=== PATIENT | female | born 1955 | race Caucasian/White ===

== ENCOUNTER → 2021-05-03 13:01 | Outpatient (CLI) | payer MEDICARE, SELFPAY ==
[2021-05-03 13:52] LABS: Add Manual Diff / Slide Review NO; Basophils Absolute Auto 100 /uL (0-100); Eosinophils Absolute Auto 100 /uL (0-450); Eosinophils Percent Auto 2.1 % (2-4); Hematocrit 36.3 % (36-46); Hemoglobin 12.4 g/dL (12.0-16.0); Lymphocytes Absolute Auto 2400 /uL (1100-4500); Lymphocytes Percent Auto 44.1 % (25-40); Mean Corpuscular HGB Conc 34.2 % (30-36); Mean Corpuscular Hemoglobin 33.7 PG (26-34); Mean Corpuscular Volume 98.5 fL (80-100); Monocytes Absolute Auto 400 /uL (0-900); Monocytes Percent Auto 6.6 % (3-14); Neutrophils Absolute Auto 2500 /uL (1500-7000); Neutrophils Percent Auto 46.2 % (50-75); Platelet Count 167 X10^3/uL (150-400); Red Blood Cell Count 3.69 X10^6/uL (4.0-5.2); Red Cell Distribution Width 12.9 % (11.6-14.8); White Blood Cell Count 5.5 X10^3/uL (4.5-11.0)
[2021-05-03 14:02] LABS: BUN Creatinine Ratio 13.9 (6-22); Blood Urea Nitrogen 15 mg/dL (7-17); Calcium 9.2 mg/dL (8.4-10.2); Carbon Dioxide 29 mmol/L (22-32); Chloride 104 mmol/L (98-107); Estimated Glomerular Filt Rate 50.6 mL/min (>60); Glucose 91 mg/dL (80-110); HEMOLYSIS < 15 (0-50); Potassium 4.1 mmol/L (3.4-5.1); Sodium 139 mmol/L (137-145)
[2021-05-03 14:10] LABS: Hemoglobin A1C% w Est Avg Glu 5.2 % (4.0-6.0)
== END ==
PROVIDERS: PCP Family Medicine; Referring Provider Orthopaedic Surgery; Visit Provider Orthopaedic Surgery
DX: Z01.818 Encounter for other preprocedural examination (principal); R73.9 Hyperglycemia, unspecified; Z01.812 Encounter for preprocedural laboratory examination
CPT/HCPCS: 36415; 80048; 83036; 85025; 93005

== ENCOUNTER → 2021-05-31 11:51 | Outpatient (CLI) | payer MEDICARE, SELFPAY ==
[2021-05-31 13:25] LABS: COVID19 -Nasal RAPID Negative (Negative)
== END ==
PROVIDERS: PCP Family Medicine; Visit Provider Nurse Practitioner Family
DX: Z20.822 Contact with and (suspected) exposure to COVID-19 (principal)
CPT/HCPCS: 87635; C9803

== ENCOUNTER 2021-06-02 06:23 | Day surgery (SDC) | payer MEDICARE, SELFPAY ==
[2021-05-22 08:20] VITALS: BMI 37.5
[2021-06-02] VITALS (17 sets, daily range): BP systolic 80–141; BP diastolic 43–79; PULSE 12–83; RESP 12–82; TEMP 36.1–36.7; O2SAT 91–97; BMI 34.9
--- NOTE | 2021-06-02 06:00 | DI.RAD.S_ITS ---
PROCEDURE: XR KNEE LT 1TO2V INDICATIONS: postop prosthesis placement TECHNIQUE: 2 view(s) of the knee acquired. COMPARISON: None. FINDINGS: Bones: Patient is status post knee joint arthroplasty. Hardware components are in expected positions. Visualized bony structures are intact. Soft tissues: Overlying postoperative changes are noted. IMPRESSION: Postoperative changes of left knee replacement without complication. Dictated by: Sam Montana M.D. on 06/02/2021 at 9:48 Approved by: Sam Montana M.D. on 06/02/2021 at 9:50
[2021-06-02] MEDS: LACTATED RINGERS 1,000 ML 42 ML IV (06:58)
[2021-06-02] MEDS: CELECOXIB 200 MG CAPSULE PO (07:03)
[2021-06-02] MEDS: PREGABALIN 75 MG CAPSULE PO (07:03)
[2021-06-02] MEDS: ACETAMINOPHEN 325 MG TABLET 975 MG PO (07:03)
--- NOTE | 2021-06-02 07:12 | PM.PREOP ---
Pre-operative Note COVID-19 COVID-19 status: Negative Result date/Date tested (Pos, Neg/Pending): 05/31/21 Interval Note History & Physical reviewed/Exam performed by Physician: Yes Changes to H&P: No
--- NOTE | 2021-06-02 07:15 | SUR.OPER ---
Supine on padded OR bed. Pillow under head, arms secured on padded armboards <90 degree abduction. Safety belt across torso. Non-operative leg secured with tape over blanket over lower leg. Operative leg secured in DeMayo/Sarthak/Nathe positioner. Foam padded brace at thigh of operative leg.
[2021-06-02] MEDS: MORPHINE 4 MG/ML INJ INJ (08:12)
[2021-06-02] MEDS: CEFAZOLIN 2 GM/20 ML SYRINGE IV (08:12)
[2021-06-02] MEDS: TRANEXAMIC ACID 1,000 MG VIAL 1000 MG INJ ×2 (08:14→09:19)
[2021-06-02] MEDS: BUPIVACAINE 0.25% (PF) 60 ML, EPINEPHrine 0.3 MG INJ (08:24)
[2021-06-02] MEDS: BUPIVACAINE LIPOSOME 266 MG/20 ML VIAL INJ (08:34)
[2021-06-02] MEDS: LACTATED RINGERS 1,000 ML 120 ML IV (09:45)
--- NOTE | 2021-06-02 09:50 | PM.OP.1 ---
Operative Date/Time/Diagnoses Date of procedure: 06/02/21 Time of procedure: 09:50 Pre-op diagnosis: Left knee osteoarthritis Post-op diagnosis: same Procedure & Clinicians Procedure: Left total knee replacement Same procedure as scheduled: Yes Indications: The patient has had progressively worsening left knee pain with radiographic changes consistent with arthritis. Non-operative management has failed and the patient has requested total knee replacement. The risks, benefits and alternatives to surgery were discussed with the patient prior to proceeding. Risks discussed included, but were not limited to, failure to relieve pain, stiffness, infection, nerve damage, deep venous thrombosis, pulmonary embolism, stroke, coma, heart attack, permanent paralysis and , as well as the potential need for eventual revision of the prosthetic. Surgeon: Matthew Culp Cutter Gas: Carolyn Whiting Click Yes if Unassisted: No Anesthesia Type: Spinal, Sedation and Local Operative Notes Findings: Severe medial and patellofemoral osteoarthritis with relative preservation of the lateral compartment. Closure Type: primary Specimen(s): none sent Prosthetic devices, grafts, tissues, transplants, or devices: Implants used in this procedure were manufactured by the [employer] and [employer] and included the BCS II Journey total knee replacement with a size 5 left Oxinium femoral component, size 4 left non porous tibial base plate, a 10 mm cross-linked tibial insert and a 32 mm oval Elba II patella Applied: implant(s) Estimated Blood Loss (mL): 25 Blood products transfused: none Tourniquet time (min): 49 Procedure in detail: The patient was seen in the pre-operative area, where the left knee was identified as the operative site and this was marked with my initials. The patient received pre-operative antibiotics, and was taken to the operating room and placed on the operative table in the supine position. After satisfactory anesthesia, a timekeeper out was performed. The left leg was encircled with a tourniquet about the proximal thigh, and the leg was prepared from the toes to the tourniquet with ChloroPrep in the usual fashion and draped through sterile drapes. The leg was elevated and exsanguinated with Eschmark bandage and the tourniquet inflated to 250 mmHg pressure. The knee was approached through an approximately 18 cm incision centered over the patella and carried into the knee through a medial parapatellar arthrotomy. The anterior osteophytes and soft tissues were removed. The rotational landmarks of Evans's line and the transepicondylar axis were marked on the femur with electrocautery, and intramedullary guide holes for the femur and tibia were created. The distal femoral cut was made in 6 degrees of valgus using the intramedullary guide at the primary cut setting. The proximal tibial cut was then made using the intramedullary guide, taking 9 mm of bone off the less involved side. The extension gap was checked and the rotation of the femoral component confirmed with the gap balancing blocks. The anterior, posterior and chamfer cuts were then made. The posterior osteophytes and soft tissues were then removed. The posterior capsule was injected with part of a mixture of 60 ml 0.25% Marcaine mixed with 20 ml Exparel and 4 mg of morphine for post-operative pain control. The remainder of this mixture was injected into the capsule and subcutaneous tissues during cement curing. The tibia was prepared with the rotation set by an extra medullary guide. Trial tibial and femoral components were then placed and the intercondylar notch cut through the femoral trial. Range of motion was 0-135 degrees, with good stability throughout the range. The patella was then cut to accommodate the patellar prosthetic. There was no need for a lateral release. The trials were then removed, and the femoral hole plugged with a bone plug. The bone was prepared with pulsatile lavage, and dried with a sponge. Cement was applied and the final prosthetics placed. Excess cement was removed during and after cement curing. After confirming there was no extruded cement posteriorly, the final tibial insert was placed. The knee was copiously irrigated and the tourniquet deflated. Hemostasis was obtained. The capsule was closed with interrupted # 2 polyester sutures. The subcutaneous layer was closed with 3-0 Vicryl, and the skin with a running 3-0 V-Lock suture and Dermabond. An Aquacel Ag dressing was applied and the patient was taken to recovery having tolerated the procedure well. Complications: none Post-operative Condition: stable Disposition: PACU Plan for aftercare: The patient will be maintained on a standard total knee replacement protocol with weight bearing as tolerated. The patient will receive aspirin and sequential compression devices for DVT prophylaxis. The patient will be discharged home when safe for the home environment.
[2021-06-02] MEDS: LACTATED RINGERS 1,000 ML 100 ML IV ×2 (11:23→20:58)
--- NOTE | 2021-06-02 11:25 | PC.NURSE ---
Day shift: Pt on unit from PACU at approx 1030. She is A&Ox4. CMS intact with PPP. RA 92%. BP 95/60 and asymptomatic. Denies any pain or nausea. JOJO and Aquacel CDI. Tolerating SCD's. IV fluid per MAR infusing. Oriented to room and call light. Agrees to not get OOB w/o help from staff.
--- NOTE | 2021-06-02 11:34 | SUR.PHASEI ---
Patient transferred to room 221 in bed with this RN. Pt awake, alert, denying pain, able to move leg. No nausea. Tolerating ice chips. Transferred with belongings and walker.
[2021-06-02] MEDS: ACETAMINOPHEN 325 MG TABLET 650 MG PO ×2 (14:02→20:58)
[2021-06-02] MEDS: FAMOTIDINE 20 MG TABLET PO (18:12)
[2021-06-02] MEDS: ASPIRIN EC 81 MG TABLET PO (20:58)
[2021-06-02] MEDS: DOCUSATE 100 MG CAPSULE PO (20:58)
[2021-06-02] MEDS: OXYCODONE IR 5 MG TABLET PO (22:11)
[2021-06-03 00:15] VITALS: BP 135/58; PULSE 74; RESP 16; TEMP 36.3; O2SAT 98
[2021-06-03 04:54] VITALS: BP 128/69; PULSE 77; RESP 18; TEMP 36.6; O2SAT 95
[2021-06-03 04:58] LABS: Hematocrit 30.3 % (36-46); Hemoglobin 10.7 g/dL (12.0-16.0)
[2021-06-03] MEDS: OXYCODONE IR 5 MG TABLET PO ×2 (05:00→09:21)
[2021-06-03 08:00] VITALS: BP 134/55; PULSE 69; RESP 14; TEMP 36.4; O2SAT 93
[2021-06-03] MEDS: FAMOTIDINE 20 MG TABLET PO (09:20)
[2021-06-03] MEDS: ASPIRIN EC 81 MG TABLET PO (09:20)
[2021-06-03] MEDS: DOCUSATE 100 MG CAPSULE PO (09:20)
[2021-06-03] MEDS: ACETAMINOPHEN 325 MG TABLET 650 MG PO (09:21)
[2021-06-03] MEDS: SODIUM CHLORIDE 0.9% FLUSH 10 ML IV (09:23)
--- NOTE | 2021-06-03 09:38 | PM.DS.1 ---
History of Present Illness History of Present Illness Date Patient Seen: 06/03/21 Time Patient Seen: 09:38 Chief complaint: Left Total Knee Arthroplasty *OPB* Narrative: Postop day 1 status post left total knee arthroplasty. Patient is doing very well today. Pain control. She has already been up to use the restroom. No fevers chills nausea or vomiting Discharge Providers Provider Date of admission: 06/02 Discharge Date: 06/03/21 Primary care physician: Kya Root DO Consults: 06/02/21 10:51 Consult to Discharge Planning Routine Comment: Consult to Physical Therapy Evaluate & Treat Comment: Physician Instructions: postop TKA protocol Discharge provider: Carolyn Whiting MD Summary Hospital Course Discharge Diagnosis: Left knee arthritis Time Spent with Patient Time spent: Less than 30 minutes Exam Vital Signs (past 8 hours): - 06/03/21 04:54 06/03/21 08:00 Temperature 97.9 F 97.6 F Pulse Rate 77 69 Respiratory Rate 18 14 Blood Pressure 128/69 134/55 L Pulse Oximetry 95 93 Oxygen Delivery Method Room Air Oxygen Flow Rate 0 Objective Labs Result Diagrams: 06/03/21 04:25 Labs: Laboratory Results - last 24 hr 06/03/21 04:25 Hgb 10.7 L Hct 30.3 L PFSH Medical History (Updated 05/22/21 @ 09:12 by Fabiana Flores RN) Anxiety Depression Easy bruising Hepatitis A (1966) Osteoarthritis Ringing in ears Surgical History (Updated 05/22/21 @ 09:11 by Fabiana Flores RN) History of hysterectomy Hx of tonsillectomy Social History household members: none Smoking Status: Never smoker alcohol intake: current Discharge Plan Discharge Plan Patient Disposition: Home Discharge orders & Medications Discharge Orders: Discharge (Order); Ordered 06/03/21 Ordered By: Carolyn Whiting Prescriptions: No Action No Known Home Medications 0RF Follow up/Referrals: Kya Root DO [Primary Care Provider] - Diet/Activity/Treatments Diet: Diet as Tolerated Activity: wbat rom as tolerated Other treatments: The patient already has postop medications at home this includes oxycodone for pain, hydroxyzine for nausea or spasm, and baby aspirin. Take baby aspirin 81 mg twice a day for blood clot prophylaxis. Skin/Wound/Dressing Care Report to your healthcare provider any signs of infection, such as:: chills, fever, night sweats, increased pain, unusual drainage and unusual redness Dressing: Keep the Aquacel dressing in place is a waterproof dressing. Visit Report/Discharge Packet Instructions: DI for Knee Replacement Stand Alone Forms: Surgery Discharge Discharge Data Primary Care Provider: Kya Root Attending Provider: Matthew Culp Quality VTE Deep Vein Thrombosis/Pulmonary Embolism Present on Admission: No
--- NOTE | 2021-06-03 10:20 | PT.IIE ---
Current Diagnoses Unilateral primary osteoarthritis, left knee (06/02/21) Surgery Performed Operation Date: 06/02/21 07:45 Actual Procedures p Total Knee Arthroplasty(Left) - Matthew Culp MD Medical History (Last Updated 05/22/21 @ 09:12 by Fabiana Flores RN) Anxiety Depression Easy bruising Hepatitis A (1966) Osteoarthritis Ringing in ears Physical Therapy Inpatient Evaluation/Re-Eval M1 PT/OT-IP Prior Functional Status Start: 06/03/21 10:43 Freq: NEEDED Status: Active Protocol: Document 06/03/21 10:20 [facility] (Rec: 06/03/21 12:36 [facility] [id number]) Medical Review Prior Functional Status Diet/Fluid Consistency Regular Communication WNL Mobility and Gait indep w/o AD; 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 Activities of Daily Living and IADL's Indep w/all ADLs Social History Household Members none Living Arrangements House Number of Floors (Floors) One Floor Number of Stairs To Enter/Railing? 1 MARIMAR (outside vs inside just different levels so can place walker into the doorway) Home Environment High Toilet,Walk in Shower Home Equipment Front Wheel Walker,Four Wheel Walker,Straight Cane,Grab Bars In Shower Additional Social History Comment pt has friends to help her drive places & has paratransit set up for PT appts. OP PT starts 06/07; pt notes she thinks she may be able to reach the shower bar from the toilet and has counter next to her. M2 PT-IP Current Condition Start: 06/03/21 10:43 Freq: NEEDED Status: Active Protocol: Document 06/03/21 10:20 [facility] (Rec: 06/03/21 12:36 [facility] [id number]) Physical Therapy Current Condition Current Condition Evaluation Date 06/03/21 Treatment Diagnosis LTKA Onset Date 06/02/21 M3 PT-IP Subjective Start: 06/03/21 10:43 Freq: NEEDED Status: Active Protocol: Document 06/03/21 10:20 [facility] (Rec: 06/03/21 12:36 [facility] [id number]) Subjective Physical Therapy Visit Type Type Initial Evaluation Visit Start Time 09:20 Visit Stop Time 10:20 Total Visit Minutes 60 Number of INDUSTRIAL PSYCHOLOGY PROFESSOR Visits 0 Physical Therapy Visit Comments Patient Goals Get home early afternoon Therapy Pain Assessment Pain When Pain Assessed During Mobility Pain Present Pain Present Pain Reported Location Left Knee Intensity 6 Scale Used Numeric (0 - 10) Pain Management Techniques Elevation,Re-positioning, Timing of Activity with Medications M4 PT-IP Mobility and Gait Start: 06/03/21 10:43 Freq: NEEDED Status: Active Protocol: Document 06/03/21 10:20 [facility] (Rec: 06/03/21 12:36 [facility] [id number]) PT-Bed Mobility Assessment Supine to Sit Supine to Sit Standby Assistance Scooting Scooting to Edge of Bed Standby Assistance PT-Transfer Assessment Sit to and From Stand Sit to and from Stand Contact Guard Assistance,Use of Upper Extremities Equipment Transfer Assistive Device Gait Belt,Front Wheeled Walker Orthotic/Prosthetic Devices or Brace: No Comments Mobility Comments supine to sit from bed SBA and sit to stand SBA. Pt amb w/ cueing for sequencing w/FWW and SBA to bathroom about 15ft away. Pt wanted to use walker as support behind her so attempted pushing it behind her, but noticed it was hard to then get turned around and had to use bar. it did help for her to be able to sit down CGA. Discussed w/pt about having 2 separate walkers so she could use one behind the toilet being safer. She stood using walker and rail behind her then had to ue bar to take steps fwd to get walker out. Discussed w/pt re: how this is not safe to be doing this and if she wants to use the walker behind her, she needs to have a 2nd one and it would be safer to keep walker in front of her. Pt encouraged to ask friends if they have a walker she could use. Pt then amb to bed to sit noting some nausea and BP was 130/75 and felt better so then amb out of room and just out of doorway, noted feeling nausea again and was given emesis bag. Pt had 275cc of emesis and noted feeling much better after. Pt amb back to chair CGA w/FWW about 15 ft. She was left sitting in chair w/call light in reach and educated that she cannot be having these reactions in order to be safe at home so another PT sessionw ould be done prior to DC. Gait Assessment Gait Gait Assistance Required: Standby Assistance Distance (Feet) 45 Assistive Devices Assistive Device Gait Belt,Front Wheeled Walker Gait Deviations General Gait Pattern Antalgic,Decreased Stride Length,Decreased Feet Clearance,Step-to Gait Factors Limiting Gait Function Factors Limiting Gait Function Decreased Activity Tolerance, Decreased Strength,Limited Range of Motion,Pain PT-Balance Assessment Sitting Balance and Reactions Static Sitting Balance Ability Good Dynamic Sitting Balance Ability Good Standing Balance and Reactions Static Standing Balance Ability Good Dynamic Standing Balance Ability Fair Device Used FWW M5 PT-IP Objective Assessments Start: 06/03/21 10:43 Freq: NEEDED Status: Active Protocol: Document 06/03/21 10:20 [facility] (Rec: 06/03/21 12:36 [facility] [id number]) Orientation Orientation/Cognition Level of Alertness Alert Language Function Ability No Deficits Noted Safety Awareness Understands Safety Issues Memory Description No Deficits Noted Gross Range of Motion Lower Extremity ROM Assessment Left Impaired Impairments ~7-45deg Strength Lower Extremity Strength Knee less than 3-/5 M6 PT-IP Treatment Start: 06/03/21 10:43 Freq: NEEDED Status: Active Protocol: Document 06/03/21 10:20 [facility] (Rec: 06/03/21 12:36 [facility] [id number]) Physical Therapy Treatment Exercises Exercises Ankle Pumps,Quad Sets,Short Arc Quads,Passive Knee Extension Hang Education Education Provided Precautions,Weight Bearing Status,Post-Op Packet,Safety Other Treatments Other Treatment Performed edu re: how to don/doff clothes at home, edu re: using FWW vs 4WW and why, edu re: getting a 2nd walker for behind toilet if she wants to use it for support like that. edu for frequent small bouts of movement and review of all exercises verbally. M7 PT-IP Assessment and Plan Start: 06/03/21 10:43 Freq: NEEDED Status: Active Protocol: Document 06/03/21 10:20 [facility] (Rec: 06/03/21 12:36 [facility] [id number]) PT Summary Assessment and Plan Potential Rehabilitation Potential Good Status of Condition at Evaluation Evolving Summary Impairments Pain,ROM,Strength,Balance,Bed Mobility,Transfers,Gait, Activity Tolerance Assessment Summary Pt is day 1 s/p L TKA w/ progressive pain since surgery and pt is very motivated to return home alone. She has PT set up and friends set up to help w/rides. She understands importance of exercise and did well with mobility w/SBA but had nausea w/a small amoutn of mobility. If pt can mobilize with nursing during the day today and in later PT session safely w/o nausea, then she will be able to return home later today. She would bneefit from cont PT to work on stairs, gait, and transfers prior to return home. Goals Bed Mobility Goal Independent Transfer Goal Independent Gait Goal Independent Gait Distance 120ft Other Goals up/down 1 platform step w/FWW SB Days to Meet Goals 4 Frequency of Treatment Frequency Of Treatment Twice a Day Treatment Plan Physical Therapy Treatment Plan Bed Mobility Training,Transfer Training,Gait Training, Therapeutic Exercise,Balance Retraining,Post Op Education, Hot or Cold Pack,Neuromuscular Re-ed,Manual Therapy Other Recommendations and Next Treatment gait training, stairs, review Focus safety Weight Bearing Status Weight Bearing Status Weight Bear as Tolerated Recommendations To Nursing Amount of Assist Needed Standby Assistance Discharge Recommendations PT Discharge Recommendations Home,Outpatient PT Transportation Needs at Discharge Private Vehicle
--- NOTE | 2021-06-03 11:12 | CM.DANOTE ---
DCP Assessment: Patient is 66 yr old female who had a LT TKA preformed by Dr. Culp. Patient currently lives in [place] by her self. patient stated she has a friend who lives near by [place] who could help if she needs it but other than that she is home by herself. patient lives in a single level home and is independent with all ADLs at base line and drives. patient has a friend scheduled to transport her home today and would like to DC at 1PM. CM let patients nurse know of her desire to DC by 1PM. patient currently has DC orders and PT is planning on working with her again in the early after noon. Pending PT eval. patient has a shower chair, FWW and 4WW at home. I: A[employer] Medicare and self pay Plan: DC home when medically stable no identified DC planning needs identified at this time. Oksana Singh RN Case Manger Discharge Planning/Care Management CM Discharge Assessment Start: 06/03/21 11:08 Freq: Status: Active Protocol: Document 06/03/21 11:08 [facility] (Rec: 06/03/21 11:12 [id number]) Discharge Planning Assessment Assigned Fire Control Mechanic Oksana Singh RN Case Manger Advance Directives? No History Provided By Patient,Medical Record Has Patient been admitted in last 30 No days? Prior Living Arrangements House Household Members none Type of transporation used prior to Drives own vehicle admit Independent with ADL's Yes Is patient alert and oriented? Yes Caregiver for Another No DME Already Rented / Owned FWW / Walker Barriers to Discharge No Discharge Plan Home Referrals Initiated None needed Whiteboard Updated in Patient Room with Yes name and ext. # of Fire Control Mechanic Review Status In Process Next Review Type Continued Stay Review Pre-Anesthesia Assessment Start: 05/22/21 08:20 Freq: Status: Complete Protocol: Document 05/22/21 08:20 [facility] (Rec: 05/22/21 09:47 [facility] [id number]) Pre-Anesthesia Assessment Patient Information Reviewed Via Phone Assessment Assessment Completed With Patient Diagnostic Results BMP/CMP,CBC,EKG Comment Labs/EKG @ [facility] 05/03/21, COVID screen @ 05/26/21 Primary Care Provider Kya Root Seen Specialist in Last 12 Months Yes Specialist Seen Orthopedist Primary Language Australian Almond Blancher Hand Required No Height 165.1 cm Weight 102.512 kg Body Mass Index (BMI) 37.5 Hearing Ability Normal Visual Impairment No Limitations Visual Assist None Dentition Type Teeth, Natural Present Barriers to Learning None Hx Anesthesia Reactions No Hx Family Anesthesia Reaction Yes: Mom-very sensitive to anesthesia Hx Malignant Hyperthermia No Hx Blood Transfusions No Anesthesia Review Requested No alcohol intake current alcohol intake frequency 0-2 drinks per day Smoking Status Never smoker Substance Use Type does not use Pain Present Pain Reported Musculoskeletal Symptoms Abnormal Gait,Difficulty Walking,Joint Pain History of Falling (Recent or History of Yes ) Patient is completely paralyzed or No completely immobile Mental Status Oriented to own ability Is patient on oxygen? No Does patient have TIRADO/SOB No Hx Sleep Apnea No Currently Taking a Beta Duke No Can You Climb a Flight of Stairs Without Yes SOB Hx Chest Pain No Hx SOB No Hx Syncope or Dizziness No Anti-Coagulant Therapy No Has a Educational Resource Coordinator No Cardiac Testing No Hx Pacemaker/ICD No Pacemaker Rep Required? No Cardiac Clearance Received Not Applicable Diet Type At Home Regular dysphagia No Urinary Catheter Present No Hx Urinary Self Catheterization No Diabetes No HgbA1C 5.2 Date 05/03/21 Patient No Lactating No Hx Drug Resistant Organism No Presence of External or Internal Medical No Devices Have you had any close contact with No someone diagnosed with COVID-19? Received a COVID vaccine? Yes Received all doses? Yes Marital Status / Lives With none Prior Living Arrangements House Number of Floors (Floors) One Floor Support System Friend(s) Does the Patient Have Assistance After No: Does not have help set up Surgery Patient Discharge Plan Description Return Home Comment Pt advised overnight length of stay per surgeon Feels Safe in Current Environment Yes Been Physically Hurt or Threatened By a No Person in Current Environment Do you have thoughts of harming yourself None or others? Are you currently considering suicide? No Do you have a plan to hurt yourself or No Plan others? Do You Have Any Spiritual Beliefs That No May Affect Your HC Choices? Do You Have Any Cultural Practices That No May Affect Your HC Choices? Comment Tommy Who Can We Speak to About Patient's Care Family, friends Identifying Code for Release of Patient Declines to issue Information Health Care Proxy/Next of Kin Anastacio (son) Health Care Proxy Emergency Contact Name Anastacio (son) Emergency Contact Advance Directives? No Power of Slot Editor No PAC Instructions Do not shave/clip surgical site,Durable medical equipment ,Medications to take/avoid, Nasal antibiotic,No ETOH/ petroleum product on skin DOS, NPO,Pre-surgical wash,Sturdy shoes/comfortable clothes,Do not bring valuables and remove jewelry
--- NOTE | 2021-06-03 12:13 | PC.NURSE ---
Day sift: Paperwork signed and all questions answered. Pt states that she already has the pain medications at home. Her friend will be picking her up at 1300 today. Rocco remains CDI. VS WNL. Ambulating well and cleared for home by PT. CMS good and PPP. Pt has all personal belongings. Plan is for her to be taken down to friends car in by WELDING MACHINE OPERATOR HELPER GAS at approx 1300 today.
--- NOTE | 2021-06-03 12:45 | PT.IPTN ---
Current Diagnoses Unilateral primary osteoarthritis, left knee (06/02/21) Surgery Performed Operation Date: 06/02/21 07:45 Actual Procedures p Total Knee Arthroplasty(Left) - Matthew Culp MD Physical Therapy Treatment Note M2 PT-IP Current Condition Start: 06/03/21 10:43 Freq: NEEDED Status: Active Protocol: Document 06/03/21 10:20 [facility] (Rec: 06/03/21 12:36 [facility] [id number]) Physical Therapy Current Condition Current Condition Evaluation Date 06/03/21 Treatment Diagnosis LTKA Onset Date 06/02/21 M3 PT-IP Subjective Start: 06/03/21 10:43 Freq: NEEDED Status: Active Protocol: Document 06/03/21 12:36 [facility] (Rec: 06/03/21 12:45 [facility] [id number]) Subjective Physical Therapy Visit Type Type Treatment Note Visit Start Time 12:12 Visit Stop Time 12:37 Total Visit Minutes 25 Number of CABLE ARMORER Visits 1 Physical Therapy Visit Comments Patient Comments Pt is finishing paperwork with nursing and is ready to discharge. Willing to go for a walk and trial platform step. Therapy Pain Assessment Pain When Pain Assessed During Mobility Pain Present Pain Present Pain Reported Location Left Knee Intensity 2 M4 PT-IP Mobility and Gait Start: 06/03/21 10:43 Freq: NEEDED Status: Active Protocol: Document 06/03/21 12:36 [facility] (Rec: 06/03/21 12:45 [facility] [id number]) PT-Transfer Assessment Sit to and From Stand Sit to and from Stand Standby Assistance Equipment Transfer Assistive Device Gait Belt,Front Wheeled Walker Orthotic/Prosthetic Devices or Brace: No Transfers Transfer Destination Chair Transfer Technique ambulated Transfer Ability Level of Assist Standby Assistance Comments Mobility Comments Pt ambulated in hallway ~300' from room to stairs and back to room. SBA for transfers and ambulation with FWW. Pt stepped up and down from platform using FWW. She is able to swing involved LE through for near normal gait pattern with some antalgia. No LOB or rest breaks. Gait Assessment Gait Gait Assistance Required: Standby Assistance Able to Maintain Weight Bearing Status Yes During Gait Assistive Devices Assistive Device Gait Belt,Front Wheeled Walker Gait Deviations General Gait Pattern Antalgic,Decreased Stride Length,Decreased Feet Clearance Factors Limiting Gait Function Factors Limiting Gait Function Abnormal Tonal Influences, Decreased Activity Tolerance, Decreased Sensation,Decreased Strength,Difficulty Following Directions,Incoordination, Limited Range of Motion,Pain, Poor Balance Comments Gait Comments see mobility section Stair Climbing Assessment Evaluation Level of Assist On Stairs Contact Guard Assistance Devices Stair Climbing Assistive Devices Front Wheel Walker Technique/Endurance Stair Climbing Direction Ascend and Descend Stair Climbing Technique Step to Step Number of Steps Climbed 1 Stair Climbing Set # Repetitions (reps) 1 Comments Stair Climbing Comments Pt able to safely ascend and descend platform step usiing step-to pattern and FWW M5 PT-IP Objective Assessments Start: 06/03/21 10:43 Freq: NEEDED Status: Active Protocol: Document 06/03/21 10:20 [facility] (Rec: 06/03/21 12:36 [facility] [id number]) Orientation Orientation/Cognition Level of Alertness Alert Language Function Ability No Deficits Noted Safety Awareness Understands Safety Issues Memory Description No Deficits Noted Gross Range of Motion Lower Extremity ROM Assessment Left Impaired Impairments ~7-45deg Strength Lower Extremity Strength Knee less than 3-/5 M6 PT-IP Treatment Start: 06/03/21 10:43 Freq: NEEDED Status: Active Protocol: Document 06/03/21 12:36 [facility] (Rec: 06/03/21 12:45 [id number]) Physical Therapy Treatment Education Education Provided Precautions,Weight Bearing Status,Post-Op Packet,Safety M7 PT-IP Assessment and Plan Start: 06/03/21 10:43 Freq: NEEDED Status: Active Protocol: Document 06/03/21 12:36 [facility] (Rec: 06/03/21 12:45 [id number]) PT Summary Assessment and Plan Recommendations To Nursing Amount of Assist Needed 1 Person Assist Discharge Recommendations PT Discharge Recommendations Home with Assistance Transportation Needs at Discharge Private Vehicle
== END 2021-06-03 13:17 | disposition home or self-care (01) ==
LOC: OR 06:26 → AC 06:46
PROVIDERS: PCP Family Medicine; Referring Provider Orthopaedic Surgery; Visit Provider Orthopaedic Surgery
PROC: 0SRD0JZ Replacement of Left Knee Joint with Synthetic Substitute, Open Approach (ICD-10-PCS; CPT 27447; principal; 2021-06-02 07:45)
DX: M17.12 Unilateral primary osteoarthritis, left knee (principal)
CPT/HCPCS: 27447; 36415; 73560; 85014; 85018; 97116; 97162; 97530; 97535; C1776; A9270; C9290; J0171; J0690; J1100; J2250; J2270; J2274; J2405; J2704; J3010